=== PATIENT | male | born 2000 | race Caucasian/White ===

== ENCOUNTER 2021-07-05 02:01 | Emergency (ER) | payer OTHER, SELFPAY ==
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
[2021-07-05 02:06] VITALS: BP 116/78; PULSE 87; RESP 20; TEMP 36.8; O2SAT 96; BMI 21.7
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
[2021-07-05 02:27] LABS: MANUAL DIFF FLAG NO
[2021-07-05 02:30] LABS: Basophils Percent Auto 0.6 % (0-2); Eosinophils Absolute Auto 0.1 X10*3/uL (0.0-0.4); Eosinophils Percent Auto 1.6 % (0-4); Hematocrit 47.7 % (42.0-52.0); Hemoglobin 15.8 g/dl (14.0-18.0); Imm Gran Abs Auto 0.03 X10*3/uL (0.00-0.03); Imm Gran Pct Auto 0.4 % (0.0-0.4); Lymphocytes Absolute Auto 1.5 X10*3/uL (1.2-4.9); Mean Corpuscular HGB Conc 33.1 g/dl (31.0-36.0); Mean Corpuscular Hemoglobin 27.3 pg (27.0-33.0); Mean Corpuscular Volume 82.4 fL (80.0-98.0); Mean Platelet Volume 9.9 fL (9.4-12.4); Monocytes Absolute Auto 0.5 X10*3/uL (0.1-1.2); Monocytes Percent Auto 7.7 % (2-11); Neutrophils Absolute Auto 4.8 x10*3/uL (2.0-8.3); Neutrophils Percent Auto 68.7 % (45-73); Platelet Count 246 X10*3/uL (160-400); Red Blood Count 5.79 X10*6/uL (4.60-5.80); Red Cell Distribution Width 12.9 % (11.0-16.0)
[2021-07-05 02:35] LABS: INTERNATIONAL NORM RATIO 1.1 (0.9-1.1); Prothrombin Time 12.7 SEC (9.9-13.0)
[2021-07-05] MEDS: iohexoL 350 MG/ML 100 ML INFUS..BTL 85 ML IV (02:41)
[2021-07-05 02:43] LABS: COVID-19 Test Negative (Negative)
[2021-07-05 02:44] LABS: Ethanol 85 mg/dL
[2021-07-05] MEDS: 0.9 % Sodium Chloride 1,000 ML 999 ML IV (02:44)
[2021-07-05 02:46] LABS: Alanine Aminotransferase 23 U/L (0-40); Albumin Level 4.9 g/dL (3.5-5.0); Alkaline Phosphatase 60 U/L (39-117); Anion Gap 16 (12-20); Aspartate Amino Transferase 24 U/L (5-37); Bilirubin Direct 0.3 mg/dL (0.0-0.5); Bilirubin Total 0.6 mg/dL (0.0-1.0); Blood Urea Nitrogen 8 mg/dL (9-16); Calcium 10.2 mg/dL (8.4-10.2); Carbon Dioxide 26 mmol/L (22-29); Chloride 107 mmol/L (96-108); Creatinine Clr Calc Pharmacy 119.1; Estimated Glomerular Filt Rate > 60; Glucose Random 86 mg/dL (60-115); Lipase 110 U/L (8-78); Potassium 3.6 mmol/L (3.3-5.1); Sodium 145 mmol/L (135-145); Total Protein 7.7 g/dL (6.5-8.0)
--- NOTE | 2021-07-05 04:19 | PC.NURSE ---
eye irrigated with normal saline, pt reports eyes feeling much better. facial care to remove piece of glass.
[2021-07-05 04:21] VITALS: BP 112/63; PULSE 58; RESP 12; O2SAT 98
[2021-07-05 04:34] LABS: Appearance Urine CLEAR; Color Urine YELLOW; Glucose Urine UA NEG (NEG); Leukocyte Esterase Urine NEG (NEG); Nitrite Urine NEG (NEG); Specific Gravity - Urine <= 1.005 (1.005-1.025); Urine Blood NEG (NEG); Urine Ketones NEG (NEG); Urine Protein TRACE MG/DL (NEG-TRACE)
[2021-07-05 04:53] LABS: Amphetamine Screen Urine Not Detected (Not Detect); Barbiturates, Urine Not Detected (Not Detect); Benzodiazepines Screen Urine Not Detected (Not Detect); Cannabinoid Screen Urine POSITIVE (Not Detect); Cocaine Screen Urine Not Detected (Not Detect); Fentanyl, urine Not Detected (Not Detect); Opiate Screen Urine Not Detected (Not Detect); Phencyclidine Screen Urine Not Detected (Not Detect)
--- NOTE | 2021-07-05 06:03 | PC.NURSE ---
PT trial to ambulate out of bed. PT able to ambulate with steady gait, complaining of left shoulder pain and pain on inspiration in the area of the right ribs.
== END 2021-07-05 06:24 ==
PROVIDERS: Emergency Provider Emergency Medicine
DX: S29.9XXA Unspecified injury of thorax, initial encounter (principal); S49.92XA Unspecified injury of left shoulder and upper arm, initial encounter; S40.212A Abrasion of left shoulder, initial encounter; R07.81 Pleurodynia; R40.2410 Glasgow coma scale score 13-15, unspecified time; V47.5XXA Car driver injured in collision with fixed or stationary object in traffic accident, initial encounter; Y93.9 Activity, unspecified; Y92.410 Unspecified street and highway as the place of occurrence of the external cause; Y99.9 Unspecified external cause status; Z20.822 Contact with and (suspected) exposure to COVID-19; Z79.899 Other long term (current) drug therapy
CPT/HCPCS: 70450; 71260; 72125; 73030; 74177; 80048; 80076; 80307; 81003; 82077; 83690; 85025; 85610; 87635; 90471; 96360; 99284; Q9967

== ENCOUNTER 2024-12-23 23:52 | Emergency (ER) | payer OTHER, SELFPAY ==
--- NOTE | ~2024-12-23 | XR_ITS ---
CLINICAL HISTORY: Pain swelling 3 views right wrist Comparison: None Findings: There is no fracture or dislocation. Joint spaces appear normal. There is no radiopaque foreign body. Impression: Unremarkable right wrist radiographs. This document has been electronically signed by: Alfred Parks MD on 12/24/2024 01:19:25
--- NOTE | ~2024-12-23 | XR_ITS ---
CLINICAL HISTORY: Pain swelling 4 views right hand Comparison: None Findings: There is no fracture or dislocation. Joint spaces appear normal. There is no radiopaque foreign body. Impression: Unremarkable right hand radiographs. This document has been electronically signed by: Alfred Parks MD on 12/24/2024 01:21:15
[2024-12-24 00:02] VITALS: BP 121/51; PULSE 62; RESP 20; O2SAT 98; BMI 21.1
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
[2024-12-24 00:52] VITALS: BP 121/51; PULSE 62; RESP 20; TEMP 36.6; O2SAT 98
--- NOTE | 2024-12-24 00:58 | ED_ITS ---
HPI - Extremity Problem General Chief complaint: Extremity Injury, Upper Stated complaint: right wrist pain and numbness Time Seen by Provider: 12/24/24 00:16 Source: patient Mode of arrival: ambulatory Limitations: no limitations History of Present Illness ED Provider: HPI Narrative: Patient comes here with the pain in the right hand after hitting the right hand to the brake plate while trying to loosen the bolt of the wheel Related Data Previous Rx's ?Medication ?Instructions ?Recorded ibuprofen 600 mg tablet 600 mg PO Q6H PRN fever or p ain 12/24/24 #30 tabs Allergies Allergy/AdvReac Type Severity Reaction Status Date / Time No Known Allergies Allergy Verified 12/24/24 00:04 Review of Systems Review of Systems: Yes all other systems are reviewed and are negative [facility] Past Medical History Medical History Scoliosis Social History Social History Alcohol intake: current Patient Tobacco Use Status: Never used Tobacco Advance Directives: No Advance Directives Information Provided: No Do you have a plan to hurt others: No Plan Physical Exam Vital Signs: Vital Signs: Last Vital Signs Temp 97.8 F 12/24/24 00:52 Pulse 62 12/24/24 00:52 Resp 20 12/24/24 00:52 BP 121/51 L 12/24/24 00:52 Pulse Ox 98 12/24/24 00:52 O2 Del Method Room Air 12/24/24 00:52 BMI result Body Mass Index 21.1 Appearance: Alert. Oriented X3. No acute distress. Eyes: no pallor or icterus ENT: Pharynx normal Oral Mucosa moist tympanic membrane intact no erythema, Neck: Normal inspection. Neck supple. CVS: Normal heart rate and rhythm. Pulses normal. Respiratory: No respiratory distress. Equal air entry bilateral, no wheezing/rales/rhonchi Abd: soft, not tender Skin: Skin warm and dry. Normal skin color. Normal skin turgor. Extremities: No lower extremity edema, no calf tenderness diffuse swelling of the base of the right hand neurovascular intact good range of movement Neuro: Oriented X 3. Medications Administered Discontinued Medications Generic Name Dose Route Start Last Admin Trade Name Freq PRN Reason Stop Dose Admin Ibuprofen 600 mg 12/24/24 00:39 12/24/24 00:45 Ibuprofen 600 Mg Tablet PO 12/24/24 00:40 600 mg ONCE ONE Administration Medical Decision Making Medical Decision Making MDM Narrative: Patient with blunt injury to the right hand x-ray negative for fracture was given wrist splint Independent Interpretation I performed an independent interpretation of an: Plain X-Ray Radiology Impression Discussion of test interpretation with radiology: I have reviewed the radiologist's reading. Procedures Orthopedic Splinting/Casting Injury #1: Side: right Upper Extremity Injury Location: wrist Upper Extremity Immobilizer: wrist splint Discharge Plan Discharge Clinical Impression: Sprain and strain of wrist Patient Disposition: Home, Self-Care Instructions: Wrist Sprain (ED) Additional Instructions: Wear the splint for support Ibuprofen for pain Your x-ray negative for fracture Prescriptions: New ibuprofen 600 mg tablet 600 mg PO Q6H PRN (Reason: fever or pain) Qty: 30 0RF Interventions: ED Discharge Assessment Last Done: 12/24/24 00:52 Discharge Date/Time: 12/24/24 00:52 Print Language: Greenlandic
== END 2024-12-24 00:52 | disposition home or self-care (01) ==
PROVIDERS: Emergency Provider Internal Medicine
DX: S63.501A Unspecified sprain of right wrist, initial encounter (principal); S66.911A Strain of unspecified muscle, fascia and tendon at wrist and hand level, right hand, initial encounter; W22.8XXA Striking against or struck by other objects, initial encounter; Y93.89 Activity, other specified; Y92.810 Car as the place of occurrence of the external cause; Y99.8 Other external cause status
CPT/HCPCS: 29125; 73110; 73130; 99283

== ENCOUNTER → 2024-12-24 00:25 | Outpatient (BNV) | payer OTHER, SELFPAY | PROVIDERS: Emergency Provider Internal Medicine; Visit Provider Radiology Diagnostic Radiology | DX: M79.641 Pain in right hand (principal); M25.531 Pain in right wrist; R22.31 Localized swelling, mass and lump, right upper limb | CPT/HCPCS: 73110; 73130 ==

== ENCOUNTER 2025-02-04 18:18 | Emergency (ER) | payer MEDICAID, SELFPAY ==
[2025-02-04 18:24] VITALS: BP 128/82; BP 142/100; PULSE 79; PULSE 83; RESP 18; TEMP 37.2; O2SAT 98; O2SAT 99; BMI 23.1
--- OUTSIDE RECORDS SUMMARY | 2025-02-04 18:43 | XMS_ITS | Encounter Summary ---
Author Organization [facility] Address [facility] [employer] [facility] [address] [place] [address] Phone Care Team Providers Care Quality Assistant Name Role Phone Pcp, Unknown Primary Care Provider Unavailabl e Encounter Details Date Type Department Care Team (Late st Contact Info) Description 09/29/2022 Transcribe Orders [facility] Specimen Processing [address] [place] [address] Gerardo Mercedes, [facility] [address] [place] [address] [email or web address] Encounter for health examination of prisoner (Primary Dx) Social History Tobacco Use Types Packs/Day Years Used Date Smoking Tobacco: Former Education Answer Date Recorded Are you interested in more education? Not on marv e 10/03/2022 Are you concerned about learning? Not on file 10/03/2022 No 10/03/2022 No 10/03/2022 Sex and Gender Information Value Date Recorded Sex Assigned at Not on file Legal Sex Male 5:03 PM EDT Gender Identity Not on file Sexual Orientation Not on file documented as of this encounter Plan of Treatment Not on file documented as of this encounter Results * (ABNORMAL) CBC (10/01/2022 10:10 AM EDT) WBC 7.43 4.00 - 11.00 K/uL [facility] RBC 5.89(H) 4.48 - 5.88 M/uL [facility] HGB 16.1 13.4 - 17.5 g/dL [facility] HCT 48.6 38.0 - 51.0 % [facility] PLT 280 140 - 430 K/uL [facility] MCV 82.5 78.0 - 97.0 fL [facility] MCH 27.3 25.0 - 33.0 pg [facility] MCHC 33.1 32.0 - 36.0 g/dL [facility] RDW 13.2 11.0 - 15.0 % [facility] MPV 10.0 8.4 - 12.8 fl [facility] 10/01/2022 10:1 0 AM EDT 10/01/2022 10:54 AM EDT Gerardo Mercedes WATER GAS OPERATOR LAB BLOOD ORDERABL ES Final Result [facility] [address] [place] [address] documented in this encounter Visit Diagnoses Diagnosis Encounter for health examination of prisoner- Primary documented in this encounter Care Teams Quality Assistant Relationship Specialty Start Date End Date Pcp, Unknown PCP - General 04/07/22 documented as of this encounter Additional Source Comments The information contained in this document represents components of the legal health record. It is not the complete legal health record.[facility]
--- OUTSIDE RECORDS SUMMARY | 2025-02-04 18:43 | XMS_ITS | Clinical Summary ---
Author Organization [facility] Address [address] [place] [address] Phone Care Team Providers Care Welder Production Line Gas Name Role Phone Pcp, Unknown Primary Care Provider Unavailabl e Allergies No known active allergies Medications No known medications Active Problems No known active problems Immunizations Immunization Administration Dates Next Due Tdap 09/15/2023 Social History Tobacco Use Types Packs/Day Years Used Date Smoking Tobacco: Former Education Answer Date Recorded Are you interested in more education? Not on marv e 10/03/2022 Are you concerned about learning? Not on file 10/03/2022 No 10/03/2022 No 10/03/2022 Digital Access Answer Date Recorded No 11/03/2022 No 11/03/2022 Reliable internet access at home? Not on file 11/03/2022 Device with a working camera? Not on file Intimate Partner Violence Answer Date R ecorded Are you denied basic needs s uch as food, clothing, or medical care? No 09/15/2023 In the past 12 months have y ou been in a relationship with a person who hurts, threatens, or tries to control you? No 09/15/2023 Are you denied basic needs s uch as food, clothing, or medical care? No 09/15/2023 In the past 12 months have y ou been in a relationship with a person who hurts, threatens, or tries to control you? No 09/15/2023 Sex and Gender Information Value Date Recorded Sex Assigned at Not on file Legal Sex Male 5:03 PM EDT Gender Identity Not on file Sexual Orientation Not on file Last Filed Vital Signs Vital Sign Reading Time Taken Comments Blood Pressure 120/76 10/16/2023 3:39 PM EDT Pulse 75 10/16/2023 3:39 PM EDT Temperature 36.7 C (98 F) 10/16/2023 3:39 PM EDT Respiratory Rate 16 10/16/2023 3:39 PM EDT Oxygen Saturation 97% 10/16/2023 3:39 PM EDT Inhaled Oxygen Concentration - - Weight 83.2 kg (183 lb 6.4 oz) 01/21/2016 12:42 PM EDT Height 180.3 cm (5' 11 ) 01/21/2016 12:42 PM EDT Body Mass Index 25.58 01/21/2016 12:42 PM EDT Plan of Treatment Health Maintenance Due Date Last Done Comments DEPRESSION SCREENING 2010 SMOKING Hx and SMOKELESS TOB ACCO SCREENING 2011 HPV VACCINES (1 - Male 3-dos e series) 2013 HEPATITIS C SCREENING 02/20/2016 HIV ONE-TIME SCREENING (18-6 5 YEARS) 02/20/2016 COVID-19 VACCINE (2 - 2023-2 5 season) 2024 10/15/2020 Adult Td,Tdap Booster 09/14/2033 09/15/2023 HEPATITIS A VACCINES Aged Out No long er eligible based on patient's age to complete this topic HIB VACCINES Aged Out No longer eligi ble based on patient's age to complete this topic MENINGOCOCCAL VACCINES (ACWY) Aged Out No longer eligible based on patient's age to complete this topic MENINGOCOCCAL VACCINES (B) Aged Out N o longer eligible based on patient's age to complete this topic PNEUMOCOCCAL VACCINES (0-49 years) Aged Out No longer eligible based on patient's age to complete this topic Medical Devices Not on file Insurance [employer] [facility] [place] [facility] [place] [facility] [place] [facility] [place] Care Teams Welder Production Line Gas Relationship Specialty Start Date End Date Pcp, Unknown PCP - General 04/07/22 Additional Source Comments The information contained in this document represents components of the legal health record. It is not the complete legal health record.[facility]
--- OUTSIDE RECORDS SUMMARY | 2025-02-04 18:43 | XMS_ITS | Clinical Summary ---
Author Organization [facility] Address [address] [place] [address] Phone Care Team Providers Care Siebel Solution Architect Name Role Phone Physician, Pcp Unknown Primary Care Provider Joie vailable Allergies No known active allergies Social History Tobacco Use Types Packs/Day Years [...] - 19+ 3-dose series) 2017 COVID-19 Vaccine (2023-2 5 season) 2024 Depression Screening 06/08/2024 Cholesterol Screening (Lipid Panel) 10/30/2024 HIV Screening 10/30/2024 Hepatitis C Screening [...] topic Insurance MEDICAID - [place] Care Teams Siebel Solution Architect Relationship Specialty Start Date End Date Physician, Pcp Unknown PCP - General 10/30/24
--- OUTSIDE RECORDS SUMMARY | 2025-02-04 18:44 | XMS_ITS | Encounter Summary ---
Author Organization [facility] Address [address] [place] [address] Phone Care Team Providers Care Senior Network Systems Engineer Name Role Phone Pcp, Unknown Primary Care Provider Unavailabl e Encounter Details Date Type Department Care Team (Late st Contact Info) Description 04/08/2022 Procedure Pass [facility], Ct Scan - [address] [address] Social History Tobacco Use Types Packs/Day Years Used Date Smoking Tobacco: Former Sex and Gender Information Value Date Recorded Sex Assigned at Not on file Legal Sex Male 5:03 PM EDT Gender Identity Not on file Sexual Orientation Not on file documented as of this encounter Functional Status * Calculated C-SSRS Risk Score (Lifetime/Recent) Answer Date of Assessment Author No Risk Indicated 04/08/2022 1:49 AM EDT Belen Slater RN * [place] Suicide Severity Rating Scale (Screener/Recent Self-Report) Question Answer Date of Assessment Author 1. Wish to be (Past 1 Month) No 04/08/2022 1:49 AM EDT Keshawn Villalba RN 2. Non-Specific Active Suicidal Thoughts (Past 1 Month) No 04/08/2022 1:49 AM Keshawn Tripathi RN 6. Suicidal Behavior (Lifetime) No 04/08/2022 1:49 AM DANYT Keshawn Villalba RN documented as of this encounter Plan of Treatment Not on file documented as of this encounter Visit Diagnoses Not on filedocumented in this encounter Care Teams Senior Network Systems Engineer Relationship Specialty Start Date End Date Pcp, Unknown PCP - General 04/07/22 documented as of this encounter Additional Source Comments The information contained in this document represents components of the legal health record. It is not the complete legal health record.[facility]
--- OUTSIDE RECORDS SUMMARY | 2025-02-04 18:44 | XMS_ITS | Encounter Summary ---
Author Organization [facility] Address [address] [place] [address] Phone Care Team Providers Care Search Engine Optimization Analyst Name Role Phone Pcp, Unknown Primary Care Provider Unavailabl e Encounter Details Date Type Department Care Team (Late st Contact Info) Description 04/08/2022 Procedure Pass [facility], Ct Scan - [address] [address] Social History Tobacco Use Types Packs/Day Years [...] 1:49 AM EDT Belen Slater RN * [place] Suicide Severity Rating Scale (Screener/Recent Self-Report) Question [...] on filedocumented in this encounter Care Teams Search Engine Optimization Analyst Relationship Specialty Start Date End Date Pcp, Unknown PCP - General 04/07/22 documented as of this encounter Additional Source Comments The information contained in this document represents components of the legal health record. It is not the complete legal health record.[facility]
--- OUTSIDE RECORDS SUMMARY | 2025-02-04 18:44 | XMS_ITS | Encounter Summary ---
Author Organization [facility] Address [address] [place] [address] Phone Care Team Providers Care Tank Charger Name Role Phone Pcp, Unknown Primary Care Provider Unavailabl e Encounter Details Date Type Department Care Team (Late st Contact Info) Description 04/08/2022 Procedure Pass [facility], Ct Scan - [address] [address] Social History Tobacco Use Types Packs/Day Years [...] 1:49 AM EDT Belen Slater RN * [place] Suicide Severity Rating Scale (Screener/Recent Self-Report) Question [...] on filedocumented in this encounter Care Teams Tank Charger Relationship Specialty Start Date End Date Pcp, Unknown PCP - General 04/07/22 documented as of this encounter Additional Source Comments The information contained in this document represents components of the legal health record. It is not the complete legal health record.[facility]
--- NOTE | 2025-02-04 19:23 | PC.NURSE ---
pt self removed c collar- approached nurses station and began verbally harrassing optical manufacturing technician. t/w attempted to deescalate patient- reminded that disrespect to employees will no be tolerated - pt demanded AMA paperwork MD mcdonald attempted to also eval and de-escalate patient to which pt stated get out of my face, dont step to me old man . Security called- AMA papers provided
--- NOTE | 2025-02-04 19:28 | ED_ITS ---
HPI - General Adult General Chief complaint: Wound/Laceration Stated complaint: laceration Time Seen by Provider: 02/04/25 19:16 Source: patient Limitations: other (Hostile, belligerent, aggressive) History of Present Illness ED Provider: Patti Siu PA-C Related Data Previous Rx's ?Medication ?Instructions ?Recorded ibuprofen 600 mg tablet 600 mg PO Q6H PRN fever or p ain 12/24/24 #30 tabs Allergies Allergy/AdvReac Type Severity Reaction Status Date / Time No Known Allergies Allergy Verified 02/04/25 18:25 PMF Past Medical History Medical History Scoliosis Social History Social History Alcohol intake: current Patient Tobacco Use Status: Never used Tobacco Advance Directives: No Advance Directives Information Provided: No Physical Exam ED Vital Signs: Vital Signs - 24 hr 02/04/25 18:24 Temperature 99 F Pulse Rate 79 Respiratory Rate 18 Blood Pressure 128/82 Pulse Oximetry 99 Oxygen Delivery Method Room Air BMI result Body Mass Index 23.1 Course Reevaluation(s) Reevaluation #1: I just want to go assessed the patient, he has been here less than an hour, prior to his assessment, he has been yelling and cursing at staff members, swearing, quite hostile and belligerent, making aggressive gestures toward 1 of the attendings and nursing staff, he left against medical advice, security had to be present. Time: 19:28 Discharge Plan Discharge Clinical Impression: Laceration Patient Disposition: Left Against Medical Advice Prescriptions: No Action ibuprofen 600 mg tablet 600 mg PO Q6H PRN (Reason: fever or pain) Qty: 30 0RF Stand Alone Forms: Against Medical Advice Print Language: Paraguayan
== END 2025-02-04 19:36 | disposition left against medical advice (07) ==
PROVIDERS: Emergency Provider Emergency Medicine
DX: R45.6 Violent behavior (principal)
CPT/HCPCS: 99281

== ENCOUNTER 2025-04-03 20:35 | Emergency (ER) | payer MEDICAID, SELFPAY ==
--- NOTE | ~2025-04-03 | XR_ITS ---
CLINICAL HISTORY: pain, no injury 3 view right ankle Comparison: None provided Findings: No acute fractures or dislocations. No significant loss of joint space, osteophytes, or erosions. No radiopaque foreign body. IMPRESSION: No acute osseous abnormality. This document has been electronically signed by: Antonella Miranda MD on 04/03/2025 21:31:52
[2025-04-03 20:48] VITALS: BP 119/54; PULSE 75; RESP 16; TEMP 36.9; O2SAT 98; BMI 21.1
[2025-04-03 23:42] VITALS: BP 127/67; PULSE 78; RESP 16; TEMP 36.6; O2SAT 99
--- OUTSIDE RECORDS SUMMARY | 2025-04-03 23:52 | XMS_ITS | Encounter Summary ---
Author Organization [facility] Address [address] [place] [address] [place] [address] Phone Care Team Providers Care Helper Teacher Name Role Phone Pcp, Unknown Primary Care Provider Unavailabl e Encounter Details Date Type Department Care Team (Late st Contact Info) Description 09/29/2022 Transcribe Orders [facility] Specimen Processing [address] [place] [address] Gerardo Mercedes, [facility] [address] [place] [address] [email or web address] Encounter for health examination of prisoner [...] EDT) WBC 7.43 4.00 - 11.00 K/uL [facility] RBC 5.89(H) 4.48 - 5.88 M/uL [facility] HGB 16.1 13.4 - 17.5 g/dL [facility] HCT 48.6 38.0 - 51.0 % [facility] PLT 280 140 - 430 K/uL [facility] MCV 82.5 78.0 - 97.0 fL [facility] MCH 27.3 25.0 - 33.0 pg [facility] MCHC 33.1 32.0 - 36.0 g/dL [facility] RDW 13.2 11.0 - 15.0 % [facility] MPV 10.0 8.4 - 12.8 fl [facility] 10/01/2022 10:1 0 AM EDT 10/01/2022 10:54 AM EDT Gerardo Mercedes BEATER ENGINEER LAB BLOOD ORDERABL ES Final Result [facility] [address] [place] [address] documented in this encounter Visit Diagnoses Diagnosis Encounter for health examination of prisoner- Primary documented in this encounter Care Teams Helper Teacher Relationship Specialty Start Date End Date Pcp, Unknown PCP - General 04/07/22 documented as of this encounter Additional Source Comments The information contained in this document represents components of the legal health record. It is not the complete legal health record.[facility]
--- OUTSIDE RECORDS SUMMARY | 2025-04-03 23:52 | XMS_ITS | Encounter Summary ---
Author Organization [facility] Address [address] [place] [phone] Phone Care Team Providers Care Motor Coach Supervisor Name Role Phone Pcp, Unknown Primary Care Provider Unavailabl e Encounter Details Date Type Department Care Team (Late st Contact Info) Description 04/08/2022 Procedure Pass [facility], Ct Scan - [address] [address] Social History Tobacco Use Types Packs/Day Years [...] 1:49 AM EDT Belen Slater RN * [place] Suicide Severity Rating Scale (Screener/Recent Self-Report) Question [...] on filedocumented in this encounter Care Teams Motor Coach Supervisor Relationship Specialty Start Date End Date Pcp, Unknown PCP - General 04/07/22 documented as of this encounter Additional Source Comments The information contained in this document represents components of the legal health record. It is not the complete legal health record.[facility]
--- OUTSIDE RECORDS SUMMARY | 2025-04-03 23:52 | XMS_ITS | Encounter Summary ---
Author Organization [facility] Address [address] [place] [address] Phone Care Team Providers Care Software Licensing Specialist Name Role Phone Pcp, Unknown Primary Care Provider Unavailabl e Encounter Details Date Type Department Care Team (Late st Contact Info) Description 04/08/2022 Procedure Pass [facility], Ct Scan - [address] [address] Social History Tobacco Use Types Packs/Day Years [...] 1:49 AM EDT Belen Slater RN * [place] Suicide Severity Rating Scale (Screener/Recent Self-Report) Question [...] on filedocumented in this encounter Care Teams Software Licensing Specialist Relationship Specialty Start Date End Date Pcp, Unknown PCP - General 04/07/22 documented as of this encounter Additional Source Comments The information contained in this document represents components of the legal health record. It is not the complete legal health record.[facility]
--- OUTSIDE RECORDS SUMMARY | 2025-04-03 23:52 | XMS_ITS | Encounter Summary ---
Author Organization [facility] Address [address] [place] [address] Phone Care Team Providers Care Donor Relations Coordinator Name Role Phone Pcp, Unknown Primary Care Provider Unavailabl e Encounter Details Date Type Department Care Team (Late st Contact Info) Description 04/08/2022 Procedure Pass [facility], Ct Scan - [address] [address] Social History Tobacco Use Types Packs/Day Years [...] 1:49 AM EDT Belen Slater RN * [place] Suicide Severity Rating Scale (Screener/Recent Self-Report) Question [...] on filedocumented in this encounter Care Teams Donor Relations Coordinator Relationship Specialty Start Date End Date Pcp, Unknown PCP - General 04/07/22 documented as of this encounter Additional Source Comments The information contained in this document represents components of the legal health record. It is not the complete legal health record.[facility]
--- OUTSIDE RECORDS SUMMARY | 2025-04-03 23:52 | XMS_ITS | Clinical Summary ---
Author Organization [facility] Address [address] [place] [address] Phone Care Team Providers Care Manager Nursing Name Role Phone Pcp, Unknown Primary Care [...] Hx and SMOKELESS TOB ACCO SCREENING 2011 HEPATITIS C SCREENING 02/20/2016 HIV ONE-TIME SCREENING (18-6 5 YEARS) 02/20/2016 INFLUENZA VACCINE (#1) 2025 COVID-19 VACCINE (2 - 2024-2 6 season) 2025 10/15/2020 Adult Td,Tdap Booster 09/14/2033 09/15/2023 HEPATITIS [...] topic Medical Devices [place] [address] [facility] [place] [address] [facility] [place] [address] [facility] [place] [address] [facility] [place] Care Teams Manager Nursing Relationship Specialty Start Date End Date Pcp, Unknown PCP - General 04/07/22 Additional Source Comments The information contained in this document represents components of the legal health record. It is not the complete legal health record.[facility]
--- OUTSIDE RECORDS SUMMARY | 2025-04-03 23:52 | XMS_ITS | Clinical Summary ---
Author Organization [facility] Address [address] [place] [address] Phone Care Team Providers Care Wine Specialist Name Role Phone Physician, Pcp Unknown Primary [...] Health Maintenance Due Date Last Done Comments Hepatitis B Vaccines (1 of 3 - 19+ 3-dose series) 2017 Depression Screening 06/08/2024 Cholesterol Screening (Lipid Panel) 10/30/2024 HIV Screening 10/30/2024 Hepatitis C Screening 10/30/2024 Social Influencers of Health Screening 10/30/2024 COVID-19 Vaccine (1 - 4-2 5 season) 2025 Influenza Vaccine (#1) 2025 HPV Vaccines (1 - 3-dose SCD M series) 2025 DTaP,Tdap,and Td Vaccines (2 - Td or Tdap) 09/14/2033 09/15/2023 RSV Immunization Adult Patie nts (1 - 1-dose 75+ series) 2073 HIB Vaccines Aged Out No longer eligi [...] topic Insurance MEDICAID - [place] Care Teams Wine Specialist Relationship Specialty Start Date End Date Physician, Pcp Unknown PCP - General 10/30/24
--- NOTE | 2025-04-04 00:44 | ED_ITS ---
HPI - General Adult General Chief complaint: Extremity Problem Stated complaint: rt foot swollen, tingling Time Seen by Provider: 04/04/25 00:43 Source: patient Mode of arrival: ambulatory Limitations: no limitations History of Present Illness ED Provider: Dr. Yao HPI narrative: 25-year-old male presented hospital today for evaluation of right ankle pain. Patient is described as a medial pain in the medial malleolus that radiates up to his knee. He denies any redness in the area. Denies any traumatic injury. Patient stated that it hurts when he walks. No signs of swelling in the joints. Related Data Previous Rx's ?Medication ?Instructions ?Recorded ibuprofen 600 mg tablet 600 mg PO Q6H PRN fever or p ain 12/24/24 #30 tabs acetaminophen 500 mg tablet 1,000 mg (2 x 500 mg) PO Q 8H 10 04/04/25 (Tylenol Extra Strength) days #60 tabs lidocaine 5 % topical patch 1 patch topical DAILY #15 ea 04/04/25 naproxen 250 mg tablet 250 mg PO BID PRN pain 10 da ys #30 04/04/25 tabs prednisone 20 mg tablet 20 mg PO DAILY 7 days #7 tab s 04/04/25 Allergies Allergy/AdvReac Type Severity Reaction Status Date / Time No Known Allergies Allergy Verified 04/03/25 20:51 Review of Systems Review of Systems: Pertinent review of systems as mentioned in HPI. All other system otherwise negative. [facility] Past Medical History [facility] Narrative: None Medical History Scoliosis Social History Social History Alcohol intake: current Alcohol intake frequency: does not drink Patient Tobacco Use Status: Never used Tobacco Smoked in Last 30 Days: Yes Use of substances other than those prescribed or required for medical reasons: Yes Substance Use Type: Marijuana Advance Directives: No Advance Directives Information Provided: Yes Do you have a plan to hurt others: No Plan Physical Exam ED Exam Exam: General: Pleasant, no distress, interacting appropriately Head: Normacephalic, atraumatic Extremities: No sign of ankle effusion, no sign of knee effusion. Patient has good palpable dorsal pedal pulse in the right lower extremity Neurological: Awake and alert, no facial droop noted Skin: Warm and dry Psychiatric: Appropriate mood and thoughts Vital Signs: Vital Signs - 24 hr 04/03/25 20:48 04/03/25 23:42 Temperature 98.4 F 97.9 F Pulse Rate 75 78 Respiratory Rate 16 16 Blood Pressure 119/54 L 127/67 Pulse Oximetry 98 99 Oxygen Delivery Method Room Air Room Air BMI result Body Mass Index 21.1 Medical Decision Making Medical Decision Making MDM Narrative: 25-year-old male presented hospital today for right-sided medial malleolus pain that radiates up to his left medial knee. Patient stated this is feels like a burning sensation. This has been going on for a week now. No signs of obvious knee effusion no sign of ankle effusion on exam. Patient does have a palpable right DP pulse. I do not think this is ischemic in nature. No sign of increased swelling of the right calf compared to the left calf I am not concerned with a DVT. I suspect patient may have isolated tendonitis. Discussed this with the patient. Ankle x-ray is negative for any fracture. Recommend NSAID treatment with some steroids and lidocaine patch and giving it some time. 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 Patient stated that he is not happy with this plan. He needs to find exactly what is going on with him. He states he went to [facility] and was directed to the ER for evaluation. He is requesting and demanding an MRI at this time. I discussed with him that we do not perform MRI for tendonitis emergently here in the ER. Patient became increasingly irritable and belligerent. I have told the patient that multiple times. I do not think he has a emergent condition at this time he has no life-threatening condition. I recommend conservative treatment given his physical exam and history. Patient told me to go count floor tiles. He does not want me in his presence. As I was walking away to attend an emergent phone call. Patient states There is a parking lot outside. I re approach patient to ask what he meant by parking lot outside. Patient states You know what I mean. Watch your back there is a parking lot outside. Patient was ambulated out of ED. He walked with normal gait. A report was filed with [facility] about the incident. artificial cherry maker notified. This event was witnessed by nursing staff. Differential Diagnosis Differential Diagnoses: The differential diagnosis associated with the presentation includes Ankle effusion, gout, knee effusion, ankle sprain, tendinitis Independent Interpretation I performed an independent interpretation of an: Plain X-Ray Radiology Impression Discussion of test interpretation with radiology: I have reviewed the radiologist's reading. Discharge Plan Discharge Clinical Impression: Ankle tendinitis Patient Disposition: Home, Self-Care Prescriptions: New prednisone 20 mg tablet 20 mg PO DAILY 7 Days Qty: 7 0RF naproxen 250 mg tablet 250 mg PO BID PRN (Reason: pain) 10 Days Qty: 30 0RF acetaminophen [Tylenol Extra Strength] 500 mg tablet 1,000 mg PO Q8H 10 Days Qty: 60 0RF lidocaine 5 % adhesive patch,medicated 1 patch topical DAILY Qty: 15 0RF Rx Instructions: leave on most painful area for up to 12 hrs No Action ibuprofen 600 mg tablet 600 mg PO Q6H PRN (Reason: fever or pain) Qty: 30 0RF Discharge Date/Time: 04/04/25 02:37 Print Language: Monegasque
--- NOTE | 2025-04-04 01:23 | PC.NURSE ---
pt became increasingly agitated and verbally abusive towards Provider Yao. Pt making threats stating You should remember there's a parking lot you have to walk through . Attempted to redirect pt but pt became increasingly agitated. Security and [employer] called. Pt escorted off unit by security, pt ambulated off unit with steady gait in no notable distress, making remarks as he exited.
== END 2025-04-04 02:37 | disposition home or self-care (01) ==
PROVIDERS: Emergency Provider Student in an Organized Health Care Education/Training Program
DX: M67.873 Other specified disorders of tendon, right ankle and foot (principal); M25.571 Pain in right ankle and joints of right foot
CPT/HCPCS: 73610; 99283; 99284

== ENCOUNTER → 2025-04-03 21:00 | Outpatient (BNV) | payer MEDICAID, SELFPAY | PROVIDERS: Visit Provider Student in an Organized Health Care Education/Training Program | DX: M25.571 Pain in right ankle and joints of right foot (principal) | CPT/HCPCS: 73610 ==

== ENCOUNTER 2025-04-04 15:23 | Outpatient (REF) | payer MEDICAID, SELFPAY ==
[2025-04-04 16:32] LABS: MANUAL DIFF FLAG NO
[2025-04-04 16:54] LABS: Hematocrit 44.4 % (42.0-52.0); Hemoglobin 14.4 g/dl (14.0-18.0); Imm Gran Abs Auto 0.02 X10*3/uL (0.00-0.03); Imm Gran Pct Auto 0.3 % (0.0-0.4); Lymphocytes Absolute Auto 1.5 X10*3/uL (1.2-4.9); Mean Corpuscular HGB Conc 32.4 g/dl (31.0-36.0); Mean Corpuscular Hemoglobin 26.9 pg (27.0-33.0); Mean Corpuscular Volume 82.8 fL (80.0-98.0); NRBC Abs Auto 0.000 X10*3/uL (0.0-0.012); NRBC Pct Auto 0.0 /100WBC (0.0-0.2); Platelet Count 265 X10*3/uL (160-400); Red Blood Count 5.36 X10*6/uL (4.60-5.80); White Blood Count 6.0 X10*3/uL (4.8-10.8)
--- OUTSIDE RECORDS SUMMARY | 2025-04-04 19:51 | XMS_ITS | Clinical Summary ---
Author Organization [facility] Address [address] [place] [address] Phone Care Team Providers Care Statistical Developer Name Role Phone Physician, Pcp Unknown Primary [...] topic Insurance MEDICAID - [place] Care Teams Statistical Developer Relationship Specialty Start Date End Date Physician, Pcp Unknown PCP - General 10/30/24
--- OUTSIDE RECORDS SUMMARY | 2025-04-04 19:51 | XMS_ITS | Encounter Summary ---
Author Organization [facility] Address [address] [place] [address] Phone Care Team Providers Care Paper Winder Name Role Phone Pcp, Unknown Primary Care Provider Unavailabl e Encounter Details Date Type Department Care Team (Late st Contact Info) Description 04/08/2022 Procedure Pass [facility], Ct Scan - [address] [address] Social History Tobacco Use Types Packs/Day Years [...] 1:49 AM EDT Belen Slater RN * [place] Suicide Severity Rating Scale (Screener/Recent Self-Report) Question [...] on filedocumented in this encounter Care Teams Paper Winder Relationship Specialty Start Date End Date Pcp, Unknown PCP - General 04/07/22 documented as of this encounter Additional Source Comments The information contained in this document represents components of the legal health record. It is not the complete legal health record.[facility]
--- OUTSIDE RECORDS SUMMARY | 2025-04-04 19:51 | XMS_ITS | Encounter Summary ---
Author Organization [facility] Address [address] [place] [address] Phone Care Team Providers Care Clay Maker Name Role Phone Pcp, Unknown Primary Care Provider Unavailabl e Encounter Details Date Type Department Care Team (Late st Contact Info) Description 04/08/2022 Procedure Pass [facility], Ct Scan - [address] [address] Social History Tobacco Use Types Packs/Day Years [...] 1:49 AM EDT Belen Slater RN * [place] Suicide Severity Rating Scale (Screener/Recent Self-Report) Question [...] on filedocumented in this encounter Care Teams Clay Maker Relationship Specialty Start Date End Date Pcp, Unknown PCP - General 04/07/22 documented as of this encounter Additional Source Comments The information contained in this document represents components of the legal health record. It is not the complete legal health record.[facility]
--- OUTSIDE RECORDS SUMMARY | 2025-04-04 19:51 | XMS_ITS | Clinical Summary ---
Author Organization [facility] Address [address] [place] [address] Phone Care Team Providers Care Residence Hall Director Name Role Phone Pcp, Unknown Primary Care [...] topic Medical Devices [place] [address] [place] [address] [facility] [facility] [place] [address] [facility] [address] [facility] [place] Care Teams Residence Hall Director Relationship Specialty Start Date End Date Pcp, Unknown PCP - General 04/07/22 Additional Source Comments The information contained in this document represents components of the legal health record. It is not the complete legal health record.[facility]
--- OUTSIDE RECORDS SUMMARY | 2025-04-04 19:51 | XMS_ITS | Encounter Summary ---
Author Organization [facility] Address [address] [place] [address] Phone Care Team Providers Care Inspector Receiving Name Role Phone Pcp, Unknown Primary Care Provider Unavailabl e Encounter Details Date Type Department Care Team (Late st Contact Info) Description 04/08/2022 Procedure Pass [facility], Ct Scan - [address] [address] Social History Tobacco Use Types Packs/Day Years [...] 1:49 AM EDT Belen Slater RN * [place] Suicide Severity Rating Scale (Screener/Recent Self-Report) Question [...] on filedocumented in this encounter Care Teams Inspector Receiving Relationship Specialty Start Date End Date Pcp, Unknown PCP - General 04/07/22 documented as of this encounter Additional Source Comments The information contained in this document represents components of the legal health record. It is not the complete legal health record.[facility]
--- OUTSIDE RECORDS SUMMARY | 2025-04-04 19:51 | XMS_ITS | Encounter Summary ---
Author Organization [facility] Address [address] [facility] [address] [place] [address] Phone Care Team Providers Care Plastic Process Technician Name Role Phone Pcp, Unknown Primary Care Provider Unavailabl e Encounter Details Date Type Department Care Team (Late st Contact Info) Description 09/29/2022 Transcribe Orders [facility] Specimen Processing [address] [place] [address] Gerardo Merceeds, [facility] [address] [place] [address] [email or web address] Encounter for health examination of prisoner (Primary [...] EDT) WBC 7.43 4.00 - 11.00 K/uL [facility] RBC 5.89(H) 4.48 - 5.88 M/uL [facility] HGB 16.1 13.4 - 17.5 g/dL [facility] HCT 48.6 38.0 - 51.0 % [facility] PLT 280 140 - 430 K/uL [facility] MCV 82.5 78.0 - 97.0 fL [facility] MCH 27.3 25.0 - 33.0 pg [facility] MCHC 33.1 32.0 - 36.0 g/dL [facility] RDW 13.2 11.0 - 15.0 % [facility] MPV 10.0 8.4 - 12.8 fl [facility] 10/01/2022 10:1 0 AM EDT 10/01/2022 10:54 AM EDT Gerardo Mercedes ROLL DOUGH DIVIDER LAB BLOOD ORDERABL ES Final Result [facility] [address] [place] [address] documented in this encounter Visit Diagnoses Diagnosis Encounter for health examination of prisoner- Primary documented in this encounter Care Teams Plastic Process Technician Relationship Specialty Start Date End Date Pcp, Unknown PCP - General 04/07/22 documented as of this encounter Additional Source Comments The information contained in this document represents components of the legal health record. It is not the complete legal health record.[facility]
== END 2025-04-04 15:24 | disposition home or self-care (01) ==
LOC: HO.HHCL 15:23
PROVIDERS: PCP Family Medicine; Visit Provider Family Medicine
DX: M79.604 Pain in right leg (principal)
CPT/HCPCS: 36415; 85025; 85652; 86140

== ENCOUNTER 2025-05-10 18:28 | Outpatient (REF) | payer MEDICAID, SELFPAY ==
--- OUTSIDE RECORDS SUMMARY | 2025-05-10 19:13 | XMS_ITS | Clinical Summary ---
Author Organization [facility] Address [address] [place] [address] Phone Care Team Providers Care Transformer Tester Name Role Phone Pcp, Unknown Primary Care [...] topic Medical Devices Not on file Insurance [employer] [place] [facility] Care Teams Transformer Tester Relationship Specialty Start Date End Date Pcp, Unknown PCP - General 04/07/22 Additional Source Comments The information contained in this document represents components of the legal health record. It is not the complete legal health record.[facility]
--- OUTSIDE RECORDS SUMMARY | 2025-05-10 19:13 | XMS_ITS | Encounter Summary ---
Author Organization [facility] Address [address] [place] [address] Phone Care Team Providers Care Buffing Wheel Former Machine Name Role Phone Pcp, Unknown Primary Care Provider Unavailabl e Encounter Details Date Type Department Care Team (Late st Contact Info) Description 04/08/2022 Procedure Pass [facility], Ct Scan - [address] [address] Social History Tobacco Use Types Packs/Day Years [...] 1:49 AM EDT Belen Slater RN * [place] Suicide Severity Rating Scale (Screener/Recent Self-Report) Question [...] on filedocumented in this encounter Care Teams Buffing Wheel Former Machine Relationship Specialty Start Date End Date Pcp, Unknown PCP - General 04/07/22 documented as of this encounter Additional Source Comments The information contained in this document represents components of the legal health record. It is not the complete legal health record.[facility]
--- OUTSIDE RECORDS SUMMARY | 2025-05-10 19:13 | XMS_ITS | Encounter Summary ---
Author Organization [facility] Address [address] [place] [address] Phone Care Team Providers Care Spreader Name Role Phone Pcp, Unknown Primary Care Provider Unavailabl e Encounter Details Date Type Department Care Team (Late st Contact Info) Description 04/08/2022 Procedure Pass [facility], Ct Scan - [address] [address] Social History Tobacco Use Types Packs/Day Years [...] 1:49 AM EDT Belen Slater RN * [place] Suicide Severity Rating Scale (Screener/Recent Self-Report) Question [...] on filedocumented in this encounter Care Teams Spreader Relationship Specialty Start Date End Date Pcp, Unknown PCP - General 04/07/22 documented as of this encounter Additional Source Comments The information contained in this document represents components of the legal health record. It is not the complete legal health record.[facility]
--- OUTSIDE RECORDS SUMMARY | 2025-05-10 19:13 | XMS_ITS | Clinical Summary ---
Author Organization [facility] Address [address] [place] [address] Phone Care Team Providers Care Orthopaedic Nurse Name Role Phone Physician, Pcp Unknown Primary [...] Health Screening 10/30/2024 COVID-19 Vaccine (1 - 2024-2 6 season) 2025 Influenza Vaccine (#1) 2025 HPV [...] topic Insurance MEDICAID - [place] Care Teams Orthopaedic Nurse Relationship Specialty Start Date End Date Physician, Pcp Unknown PCP - General 10/30/24
--- OUTSIDE RECORDS SUMMARY | 2025-05-10 19:13 | XMS_ITS | Encounter Summary ---
Author Organization [facility] Address [address] [facility] [address] [place] [address] Phone Care Team Providers Care Fire Truck Driver Name Role Phone Pcp, Unknown Primary Care Provider Unavailabl e Encounter Details Date Type Department Care Team (Late st Contact Info) Description 09/29/2022 Transcribe Orders [facility] Specimen Processing [address] [place] [address] Gerardo Mercedes, [facility] [address] [place] [address] [email or web address] Encounter for health examination of prisoner [...] EDT) WBC 7.43 4.00 - 11.00 K/uL [facility] RBC 5.89(H) 4.48 - 5.88 M/uL [facility] HGB 16.1 13.4 - 17.5 g/dL [facility] HCT 48.6 38.0 - 51.0 % [facility] PLT 280 140 - 430 K/uL [facility] MCV 82.5 78.0 - 97.0 fL [facility] MCH 27.3 25.0 - 33.0 pg [facility] MCHC 33.1 32.0 - 36.0 g/dL [facility] RDW 13.2 11.0 - 15.0 % [facility] MPV 10.0 8.4 - 12.8 fl [facility] 10/01/2022 10:1 0 AM EDT 10/01/2022 10:54 AM EDT Gerardo Mercedes APPLICATIONS SYSTEM ANALYST LAB BLOOD BKR JULY PATEL Final Result [facility] [address] [place] [address] documented in this encounter Visit Diagnoses Diagnosis Encounter for health examination of prisoner- Primary documented in this encounter Care Teams Fire Truck Driver Relationship Specialty Start Date End Date Pcp, Unknown PCP - General 04/07/22 documented as of this encounter Additional Source Comments The information contained in this document represents components of the legal health record. It is not the complete legal health record.[facility]
--- OUTSIDE RECORDS SUMMARY | 2025-05-10 19:13 | XMS_ITS | Encounter Summary ---
Author Organization [facility] Address [address] [place] [address] Phone Care Team Providers Care Pattern Marker Name Role Phone Pcp, Unknown Primary Care Provider Unavailabl e Encounter Details Date Type Department Care Team (Late st Contact Info) Description 04/08/2022 Procedure Pass [facility], Ct Scan - [address] [address] Social History Tobacco Use Types Packs/Day Years [...] 1:49 AM EDT Belen Slater RN * [place] Suicide Severity Rating Scale (Screener/Recent Self-Report) Question [...] on filedocumented in this encounter Care Teams Pattern Marker Relationship Specialty Start Date End Date Pcp, Unknown PCP - General 04/07/22 documented as of this encounter Additional Source Comments The information contained in this document represents components of the legal health record. It is not the complete legal health record.[facility]
== END 2025-05-10 18:29 | disposition home or self-care (01) ==
LOC: HO.HHCLNP 18:28
DX: K31.89 Other diseases of stomach and duodenum (principal)
CPT/HCPCS: 83013

== ENCOUNTER 2025-05-12 13:18 | Outpatient (REF) | payer MEDICAID, SELFPAY ==
--- NOTE | ~2025-05-12 | XR_ITS ---
EXAMINATION: XR CERVICAL SPINE CLINICAL INFORMATION: PAIN COMPARISON: None available. TECHNIQUE: 3 views of the cervical spine were obtained. FINDINGS: There are no prevertebral soft tissue or bony abnormalities demonstrated. No compression fractures or subluxations are identified. Alignment is maintained at the atlanto-axial articulation. The disc spaces are preserved. No endplate changes are seen. The prevertebral soft tissues are normal. The foramina are patent. XR/XR cervical spine 3V IMPRESSION: Unremarkable examination. Electronically signed by: Guerrero Jarrell MD 05/12/2025 01:51 PM EST
--- OUTSIDE RECORDS SUMMARY | 2025-05-12 17:24 | XMS_ITS | Clinical Summary ---
Author Organization [facility] Address [address] [place] [address] Phone Care Team Providers Care Electrical Software Engineer Name Role Phone Physician, Pcp Unknown Primary [...] topic Insurance MEDICAID - [place] Care Teams Electrical Software Engineer Relationship Specialty Start Date End Date Physician, Pcp Unknown PCP - General 10/30/24
--- OUTSIDE RECORDS SUMMARY | 2025-05-12 17:24 | XMS_ITS | Encounter Summary ---
Author Organization [facility] Address [address] [place] [address] Phone Care Team Providers Care Business Systems Developer Name Role Phone Pcp, Unknown Primary Care Provider Unavailabl e Encounter Details Date Type Department Care Team (Late st Contact Info) Description 04/08/2022 Procedure Pass [facility], Ct Scan - [address] [address] Social History Tobacco Use Types Packs/Day Years [...] 1:49 AM EDT Belen Slater RN * [place] Suicide Severity Rating Scale (Screener/Recent Self-Report) Question [...] on filedocumented in this encounter Care Teams Business Systems Developer Relationship Specialty Start Date End Date Pcp, Unknown PCP - General 04/07/22 documented as of this encounter Additional Source Comments The information contained in this document represents components of the legal health record. It is not the complete legal health record.[facility]
--- OUTSIDE RECORDS SUMMARY | 2025-05-12 17:24 | XMS_ITS | Encounter Summary ---
Author Organization [facility] Address [address] [facility] [address] [place] [address] Phone Care Team Providers Care Practice Coordinator Name Role Phone Pcp, Unknown Primary Care Provider Unavailabl e Encounter Details Date Type Department Care Team (Late st Contact Info) Description 09/29/2022 Transcribe Orders [facility] Specimen Processing [address] [place] [address] Geradro Mercedes, [facility] [address] [place] [address] [email or web address] Encounter for health examination of prisoner [...] EDT) WBC 7.43 4.00 - 11.00 K/uL [facility] RBC 5.89(H) 4.48 - 5.88 M/uL [facility] HGB 16.1 13.4 - 17.5 g/dL [facility] HCT 48.6 38.0 - 51.0 % [facility] PLT 280 140 - 430 K/uL [facility] MCV 82.5 78.0 - 97.0 fL [facility] MCH 27.3 25.0 - 33.0 pg [facility] MCHC 33.1 32.0 - 36.0 g/dL [facility] RDW 13.2 11.0 - 15.0 % [facility] MPV 10.0 8.4 - 12.8 fl [facility] 10/01/2022 10:1 0 AM EDT 10/01/2022 10:54 AM EDT Gerardo Mercedes METAL LATHER LAB BLOOD BKR JULY PATEL Final Result [facility] [address] [place] [address] documented in this encounter Visit Diagnoses Diagnosis Encounter for health examination of prisoner- Primary documented in this encounter Care Teams Practice Coordinator Relationship Specialty Start Date End Date Pcp, Unknown PCP - General 04/07/22 documented as of this encounter Additional Source Comments The information contained in this document represents components of the legal health record. It is not the complete legal health record.[facility]
--- OUTSIDE RECORDS SUMMARY | 2025-05-12 17:24 | XMS_ITS | Clinical Summary ---
Author Organization [facility] Address [address] [place] [address] Phone Care Team Providers Care Cdl Company Driver Name Role Phone Pcp, Unknown Primary [...] topic Medical Devices Not on file Insurance [employer] [place] [facility] [facility] Care Teams Cdl Company Driver Relationship Specialty Start Date End Date Pcp, Unknown PCP - General 04/07/22 Additional Source Comments The information contained in this document represents components of the legal health record. It is not the complete legal health record.[facility]
--- OUTSIDE RECORDS SUMMARY | 2025-05-12 17:24 | XMS_ITS | Encounter Summary ---
Author Organization [facility] Address [address] [place] [address] Phone Care Team Providers Care Public Health Officer Name Role Phone Pcp, Unknown Primary Care Provider Unavailabl e Encounter Details Date Type Department Care Team (Late st Contact Info) Description 04/08/2022 Procedure Pass [facility], Ct Scan - [address] [address] Social History Tobacco Use Types Packs/Day Years [...] 1:49 AM EDT Belen Slater RN * [place] Suicide Severity Rating Scale (Screener/Recent Self-Report) Question [...] on filedocumented in this encounter Care Teams Public Health Officer Relationship Specialty Start Date End Date Pcp, Unknown PCP - General 04/07/22 documented as of this encounter Additional Source Comments The information contained in this document represents components of the legal health record. It is not the complete legal health record.[facility]
--- OUTSIDE RECORDS SUMMARY | 2025-05-12 17:24 | XMS_ITS | Encounter Summary ---
Author Organization [facility] Address [address] [place] [phone] Phone Care Team Providers Care Mosaic Tiler Name Role Phone Pcp, Unknown Primary Care Provider Unavailabl e Encounter Details Date Type Department Care Team (Late st Contact Info) Description 04/08/2022 Procedure Pass [facility], Ct Scan - [address] [id number] Social History Tobacco Use Types Packs/Day Years [...] 1:49 AM EDT Belen Slater RN * [place] Suicide Severity Rating Scale (Screener/Recent Self-Report) Question [...] on filedocumented in this encounter Care Teams Mosaic Tiler Relationship Specialty Start Date End Date Pcp, Unknown PCP - General 04/07/22 documented as of this encounter Additional Source Comments The information contained in this document represents components of the legal health record. It is not the complete legal health record.[facility]
[2025-05-12 17:30] LABS: Alanine Aminotransferase 30 U/L (0-40); Albumin Level 4.9 g/dL (3.5-5.0); Alkaline Phosphatase 58 U/L (39-117); Anion Gap 13 (12-20); Aspartate Amino Transferase 28 U/L (5-37); Blood Urea Nitrogen 12 mg/dL (9-16); Calcium 9.4 mg/dL (8.4-10.2); Carbon Dioxide 25 mmol/L (22-29); Chloride 106 mmol/L (96-108); Cholesterol 139 mg/dL (<200); Estimated Glomerular Filt Rate > 60; HDL Cholesterol 49 mg/dL (>40); Potassium 3.7 mmol/L (3.3-5.1); Sodium 140 mmol/L (135-145); Total Protein 7.1 g/dL (6.5-8.0); Triglycerides 77 mg/dL (<150)
== END 2025-05-12 13:19 | disposition home or self-care (01) ==
LOC: HO.HHCL 13:18
DX: Z00.00 Encounter for general adult medical examination without abnormal findings (principal); M54.2 Cervicalgia
CPT/HCPCS: 36415; 72040; 80053; 80061

== ENCOUNTER → 2025-05-12 13:30 | Outpatient (BNV) | payer MEDICAID, SELFPAY | PROVIDERS: Visit Provider Radiology Diagnostic Radiology | DX: M54.2 Cervicalgia (principal) | CPT/HCPCS: 72040 ==